=== PATIENT | male | born 1980 | race Caucasian/White ===

== ENCOUNTER 2020-01-06 06:28 | Outpatient (REF) | payer OTHER, SELFPAY | END 2020-01-06 06:29 | disposition home or self-care (01) | LOC: HO.LAB 06:28 | PROVIDERS: Visit Provider Family Medicine | DX: B19.20 Unspecified viral hepatitis C without hepatic coma (principal) | CPT/HCPCS: 36415; 87522 ==

== ENCOUNTER → 2020-03-29 11:55 | Outpatient (BNVA) | payer OTHER, SELFPAY | PROVIDERS: PCP Family Medicine; Visit Provider Internal Medicine Gastroenterology ==

== ENCOUNTER 2020-04-15 07:36 | Outpatient (REF) | payer OTHER, SELFPAY ==
--- NOTE | ~2020-04-15 | US_ITS ---
EXAMINATION: US COMPLETE ABDOMEN WITH LIVER ELASTOGRAPHY CLINICAL INFORMATION: Viral hepatitis C without hepatic coma. COMPARISON: 09/15/2015 abdominal ultrasound. TECHNIQUE: Real-time imaging of the abdominal viscera. Noninvasive ultrasound liver fibrosis assessment is performed using Philip Elast[employer] point quantification shear wave elastography (pSWE) with a C5-2 MHz transducer. Multiple elastography samples are obtained. FINDINGS: PANCREAS: Visualized portions unremarkable. ABDOMINAL AORTA: Visualized portions unremarkable. INFERIOR VENA CAVA: Visualized portions unremarkable. LIVER: Homogeneous echotexture without focal abnormality. The right lobe measures 15.3 cm in length. The left lobe measures 12.3 cm in length. Portal flow is hepatopedal. Shear wave liver elastography median stiffness is 1.42 m/s (reference: normal median stiffness is 1.3 m/s or less). IQR/median stiffness to assess sampling precision is 0.13 (reference: good quality data set is IQR/median stiffness of 0.15 or less). IQR: 0.18 GALLBLADDER: Minimal echogenic bile without other abnormality. COMMON BILE DUCT: 0.8 cm the common hepatic duct, 0.5 cm at the common bile duct. RIGHT KIDNEY: 10.9 cm. Unremarkable. LEFT KIDNEY: 11.3 cm. Unremarkable. SPLEEN: Normal. An 0.3 cm. Unremarkable. FREE FLUID: None. US/US abdomen comp w elastography IMPRESSION: 1. No significant intra-abdominal abnormality. 2. Liver elastography: 1.42 REFERENCE: Society of Radiologists in Ultrasound Liver Stiffness Thresholds (2020): LIVER STIFFNESS THRESHOLDS: *Liver Stiffness equal or less than 1.3 m/s: High probability of being normal. *Liver Stiffness less than 1.7 m/s: In the absence of other known clinical signs, rules out compensated advanced chronic liver disease. *Liver Stiffness 1.7-2.1 m/s: Suggestive of compensated advanced chronic liver disease but need further test for confirmation. *Liver Stiffness over 2.1 m/s: Rules in compensated advanced chronic liver disease. *Liver Stiffness over 2.4 m/s: Suggestive of clinically significant portal hypertension. QUALITY OF DATA SET: *IQR/Median value equal or less than 0.15 implies a quality data set. *IQR/Median value over 0.15 implies a poor quality data set. SIGNIFICANT CHANGE FROM PRIOR EXAM: Significant change if liver stiffness measurement is 10% or greater from prior exam. OTHER CONSIDERATIONS: The stage of liver fibrosis may be overestimated in the setting of acute hepatitis, liver inflammation, elevated liver function tests, hepatic vascular congestion, obstructive cholestasis, non-fasting state, and infiltrative diseases such as amyloidosis and lymphoma. In some patients with NAFLD, the liver stiffness thresholds for compensated advanced chronic liver disease may be lower. In causes other than viral hepatitis and NAFLD, liver stiffness thresholds are not well established.
== END 2020-04-15 07:37 | disposition home or self-care (01) ==
LOC: HO.US 07:36
PROVIDERS: PCP Family Medicine; Visit Provider Internal Medicine Gastroenterology
DX: B19.20 Unspecified viral hepatitis C without hepatic coma (principal)
CPT/HCPCS: 76705; 76981

== ENCOUNTER 2020-05-08 08:35 | Outpatient (REF) | payer OTHER, SELFPAY ==
[2020-05-08 09:09] LABS: MANUAL DIFF FLAG NO
[2020-05-08 09:16] LABS: Basophils Percent Auto 0.5 % (0-2); Eosinophils Absolute Auto 0.1 X10*3/uL (0.0-0.4); Eosinophils Percent Auto 1.9 % (0-4); Hematocrit 40.6 % (42-52); Hemoglobin 13.3 g/dl (14.0-18.0); Imm Gran Abs Auto 0.01 X10*3/uL (0.00-0.03); Imm Gran Pct Auto 0.2 % (0.0-0.4); Lymphocytes Absolute Auto 2.5 X10*3/uL (1.2-4.9); Lymphocytes Percent Auto 39.4 % (20-40); Mean Corpuscular HGB Conc 32.8 g/dl (31.0-36.0); Mean Corpuscular Volume 88.6 fL (80-98); Mean Platelet Volume 9.7 fL (9.4-12.4); Monocytes Absolute Auto 0.4 X10*3/uL (0.1-1.2); Monocytes Percent Auto 6.5 % (2-11); Neutrophils Absolute Auto 3.3 X10*3/uL (2.0-8.3); Neutrophils Percent Auto 51.5 % (45-73); Platelet Count 255 X10*3/uL (160-400); Red Blood Count 4.58 X10*6/uL (4.60-5.80); Red Cell Distribution Width 12.2 % (11.0-16.0); White Blood Count 6.3 X10*3/uL (4.8-10.8)
[2020-05-08 09:20] LABS: INTERNATIONAL NORM RATIO 1.1 (0.9-1.1); Prothrombin Time 12.6 SEC (10.8-13.0)
[2020-05-08 09:37] LABS: Alanine Aminotransferase 78 U/L (0-40); Albumin Level 4.4 g/dL (3.5-5.0); Alkaline Phosphatase 68 U/L (39-117); Anion Gap 9 (12-20); Aspartate Amino Transferase 38 U/L (5-37); Bilirubin Total 0.8 mg/dL (0.0-1.0); Blood Urea Nitrogen 22 mg/dL (9-16); Calcium 9.5 mg/dL (8.4-10.2); Carbon Dioxide 30 mmol/L (22-29); Chloride 104 mmol/L (96-108); Estimated Glomerular Filt Rate > 60; Glucose Random 121 mg/dL (60-115); Potassium 4.4 mmol/L (3.3-5.1); Sodium 139 mmol/L (135-145); Total Protein 7.2 g/dL (6.5-8.0)
[2020-05-12 08:01] LABS: HBS Num1 142.78 mIU/mL (0-7.99); HBc Num1 0.11 S/CO (0.00-0.79); Hepatitis A Antibody IgM 0.18 Index (0-0.79); Hepatitis B Core Antibody Nonreactive (Nonreactive); ~Hepatitis A Antibody IgM Nonreactive (Nonreactive); ~Hepatitis B Surface Antibody REACTIVE (Nonreactive)
[2020-05-12 09:28] LABS: HBsAGNum1 0.17 S/CO (0.00-0.99); Hepatitis B Surface Antigen Negative (Negative); ~HepC Num1 17.84 S/CO (0.00-0.79); ~Hepatitis C Antibody Reactive (Nonreactive)
[2020-05-15 11:02] LABS: FIB-ALT 67 U/L (9-46); FIB-Alpha-2-Macroglobulin 145 mg/dL (106-279); FIB-Apolipoprotein A1 139 mg/dL (94-176); FIB-GGT 23 U/L (3-90); FIB-Haptoglobin 102 mg/dL (43-212); FIB-Total Bilirubin 0.8 mg/dL (0.2-1.2); Liver Fibrosis Score 0.15; Liver Fibrosis Stage F0; Nec Inflam Act Grade A1; Nec Inflam Act Score 0.35
== END 2020-05-08 08:36 | disposition home or self-care (01) ==
LOC: HO.LAB 08:35
PROVIDERS: PCP Family Medicine; Visit Provider Internal Medicine Gastroenterology
DX: B19.20 Unspecified viral hepatitis C without hepatic coma (principal)
CPT/HCPCS: 36415; 80053; 81596; 85025; 85610; 86704; 86706; 86709; 86803; 87340

== ENCOUNTER 2020-06-08 07:16 | Outpatient (REF) | payer OTHER, SELFPAY ==
[2020-06-10 13:56] LABS: HCV RNA PCR Qn 202000 IU/mL (NOT DETECTED); HCV RNA PCR Qn 5.31 Log IU/mL (NOT DETECTED)
[2020-06-16 17:47] LABS: HCV Genotype LiPA 1a
== END 2020-06-08 07:17 | disposition home or self-care (01) ==
LOC: HO.LAB 07:16
PROVIDERS: PCP Family Medicine; Visit Provider Internal Medicine Gastroenterology
DX: B19.20 Unspecified viral hepatitis C without hepatic coma (principal)
CPT/HCPCS: 36415; 87522; 87902

== ENCOUNTER → 2020-07-09 10:38 | Outpatient (BNVA) | payer OTHER, SELFPAY | PROVIDERS: PCP Family Medicine; Visit Provider Internal Medicine Gastroenterology | DX: B19.20 Unspecified viral hepatitis C without hepatic coma (principal) ==

== ENCOUNTER 2020-08-10 07:20 | Outpatient (REF) | payer OTHER, SELFPAY ==
[2020-08-10 07:52] LABS: MANUAL DIFF FLAG NO
[2020-08-10 07:54] LABS: Basophils Percent Auto 0.4 % (0-2); Eosinophils Absolute Auto 0.1 X10*3/uL (0.0-0.4); Eosinophils Percent Auto 1.6 % (0-4); Hematocrit 39.5 % (42-52); Hemoglobin 13.3 g/dl (14.0-18.0); Imm Gran Abs Auto 0.02 X10*3/uL (0.00-0.03); Imm Gran Pct Auto 0.3 % (0.0-0.4); Lymphocytes Absolute Auto 3.2 X10*3/uL (1.2-4.9); Lymphocytes Percent Auto 42.8 % (20-40); Mean Corpuscular HGB Conc 33.7 g/dl (31.0-36.0); Mean Corpuscular Hemoglobin 29.4 pg (27.0-33.0); Mean Corpuscular Volume 87.2 fL (80-98); Mean Platelet Volume 9.8 fL (9.4-12.4); Monocytes Absolute Auto 0.6 X10*3/uL (0.1-1.2); Monocytes Percent Auto 7.4 % (2-11); Neutrophils Absolute Auto 3.5 X10*3/uL (2.0-8.3); Neutrophils Percent Auto 47.5 % (45-73); Platelet Count 237 X10*3/uL (160-400); Red Blood Count 4.53 X10*6/uL (4.60-5.80); Red Cell Distribution Width 12.1 % (11.0-16.0); White Blood Count 7.4 X10*3/uL (4.8-10.8)
[2020-08-10 08:23] LABS: Alanine Aminotransferase 16 U/L (0-40); Albumin Level 4.4 g/dL (3.5-5.0); Alkaline Phosphatase 64 U/L (39-117); Anion Gap 11 (12-20); Aspartate Amino Transferase 21 U/L (5-37); Bilirubin Total 0.6 mg/dL (0.0-1.0); Blood Urea Nitrogen 25 mg/dL (9-16); Calcium 9.8 mg/dL (8.4-10.2); Carbon Dioxide 28 mmol/L (22-29); Chloride 106 mmol/L (96-108); Estimated Glomerular Filt Rate > 60; Glucose Random 99 mg/dL (60-115); Potassium 4.4 mmol/L (3.3-5.1); Sodium 141 mmol/L (135-145); Total Protein 7.1 g/dL (6.5-8.0)
[2020-08-11 20:27] LABS: HCV Log PCR <1.18 NOT DETECTED Log IU/mL (NOT DETECTED); HepC Viral Load <15 NOT DETECTED IU/mL (NOT DETECTED)
== END 2020-08-10 07:21 | disposition home or self-care (01) ==
LOC: HO.LAB 07:20
PROVIDERS: PCP Family Medicine; Visit Provider Internal Medicine Gastroenterology
DX: B19.20 Unspecified viral hepatitis C without hepatic coma (principal)
CPT/HCPCS: 36415; 80053; 85025; 87522

== ENCOUNTER → 2020-08-13 10:49 | Outpatient (BNVA) | payer OTHER, SELFPAY | PROVIDERS: PCP Family Medicine; Visit Provider Internal Medicine Gastroenterology ==

== ENCOUNTER 2020-09-17 12:22 | Outpatient (REF) | payer OTHER, SELFPAY ==
[2020-09-17 13:15] LABS: MANUAL DIFF FLAG NO
[2020-09-17 13:19] LABS: Basophils Percent Auto 0.4 % (0-2); Eosinophils Absolute Auto 0.1 X10*3/uL (0.0-0.4); Hematocrit 41.1 % (42-52); Hemoglobin 13.6 g/dl (14.0-18.0); Imm Gran Abs Auto 0.02 X10*3/uL (0.00-0.03); Imm Gran Pct Auto 0.3 % (0.0-0.4); Lymphocytes Absolute Auto 2.3 X10*3/uL (1.2-4.9); Lymphocytes Percent Auto 29.7 % (20-40); Mean Corpuscular HGB Conc 33.1 g/dl (31.0-36.0); Mean Corpuscular Hemoglobin 28.9 pg (27.0-33.0); Mean Corpuscular Volume 87.4 fL (80-98); Monocytes Absolute Auto 0.4 X10*3/uL (0.1-1.2); Monocytes Percent Auto 5.7 % (2-11); Neutrophils Absolute Auto 4.9 X10*3/uL (2.0-8.3); Neutrophils Percent Auto 62.9 % (45-73); Platelet Count 280 X10*3/uL (160-400); Red Cell Distribution Width 12.5 % (11.0-16.0); White Blood Count 7.7 X10*3/uL (4.8-10.8)
[2020-09-17 13:54] LABS: Alanine Aminotransferase 12 U/L (0-40); Albumin Level 4.6 g/dL (3.5-5.0); Alkaline Phosphatase 77 U/L (39-117); Anion Gap 13 (12-20); Aspartate Amino Transferase 21 U/L (5-37); Bilirubin Total 0.4 mg/dL (0.0-1.0); Blood Urea Nitrogen 17 mg/dL (9-16); Carbon Dioxide 27 mmol/L (22-29); Chloride 104 mmol/L (96-108); Estimated Glomerular Filt Rate > 60; Glucose Random 103 mg/dL (60-115); Potassium 4.2 mmol/L (3.3-5.1); Sodium 140 mmol/L (135-145); Total Protein 7.5 g/dL (6.5-8.0)
[2020-09-17 14:00] LABS: Calcium 10.3 mg/dL (8.4-10.2)
[2020-09-22 12:42] LABS: HCV Log PCR <1.18 NOT DETECTED Log IU/mL (NOT DETECTED); HepC Viral Load <15 NOT DETECTED IU/mL (NOT DETECTED)
== END 2020-09-17 12:23 | disposition home or self-care (01) ==
LOC: HO.LAB 12:22
PROVIDERS: Family Medicine; Visit Provider Internal Medicine Gastroenterology
DX: Z00.00 Encounter for general adult medical examination without abnormal findings (principal); B19.20 Unspecified viral hepatitis C without hepatic coma
CPT/HCPCS: 36415; 80053; 85025; 87522

== ENCOUNTER 2021-02-05 09:52 | Outpatient (REF) | payer OTHER, SELFPAY ==
[2021-02-05 10:11] LABS: MANUAL DIFF FLAG NO
[2021-02-05 11:27] LABS: Basophils Percent Auto 0.3 % (0-2); Eosinophils Absolute Auto 0.2 X10*3/uL (0.0-0.4); Eosinophils Percent Auto 2.7 % (0-4); Hematocrit 40.3 % (42.0-52.0); Hemoglobin 13.3 g/dl (14.0-18.0); Imm Gran Abs Auto 0.03 X10*3/uL (0.00-0.03); Imm Gran Pct Auto 0.3 % (0.0-0.4); Lymphocytes Absolute Auto 2.1 X10*3/uL (1.2-4.9); Lymphocytes Percent Auto 23.3 % (20-40); Mean Corpuscular Hemoglobin 29.6 pg (27.0-33.0); Mean Corpuscular Volume 89.8 fL (80.0-98.0); Mean Platelet Volume 9.4 fL (9.4-12.4); Monocytes Absolute Auto 0.5 X10*3/uL (0.1-1.2); Monocytes Percent Auto 5.7 % (2-11); Neutrophils Absolute Auto 6.1 x10*3/uL (2.0-8.3); Neutrophils Percent Auto 67.7 % (45-73); Platelet Count 288 X10*3/uL (160-400); Red Blood Count 4.49 X10*6/uL (4.60-5.80); Red Cell Distribution Width 12.2 % (11.0-16.0)
[2021-02-05 12:12] LABS: Alanine Aminotransferase 13 U/L (0-40); Albumin Level 4.2 g/dL (3.5-5.0); Alkaline Phosphatase 84 U/L (39-117); Anion Gap 13 (12-20); Aspartate Amino Transferase 19 U/L (5-37); Bilirubin Total 0.4 mg/dL (0.0-1.0); Blood Urea Nitrogen 15 mg/dL (9-16); Calcium 9.9 mg/dL (8.4-10.2); Carbon Dioxide 28 mmol/L (22-29); Chloride 105 mmol/L (96-108); Cholesterol 171 mg/dL; Estimated Glomerular Filt Rate > 60; Glucose Random 89 mg/dL (60-115); HDL Cholesterol 43 mg/dL; LDL Cholesterol Calculated 105 mg/dl; Potassium 4.3 mmol/L (3.3-5.1); Sodium 142 mmol/L (135-145); Triglycerides 116 mg/dL
[2021-02-05 12:18] LABS: TSH reflex Free T4 1.45 uIU/mL (0.32-4.0)
[2021-02-10 21:02] LABS: HCV Log PCR <1.18 NOT DETECTED Log IU/mL (NOT DETECTED); HepC Viral Load <15 NOT DETECTED IU/mL (NOT DETECTED)
== END 2021-02-05 09:53 | disposition home or self-care (01) ==
LOC: HO.LAB 09:52
PROVIDERS: PCP Family Medicine; Visit Provider Internal Medicine Gastroenterology
DX: Z00.00 Encounter for general adult medical examination without abnormal findings (principal); B19.20 Unspecified viral hepatitis C without hepatic coma
CPT/HCPCS: 36415; 80053; 80061; 84443; 85025; 87522

== ENCOUNTER → 2021-02-08 11:12 | Outpatient (BNVA) | payer OTHER, SELFPAY | PROVIDERS: PCP Family Medicine; Visit Provider Internal Medicine Gastroenterology ==

== ENCOUNTER 2021-04-02 09:41 | Outpatient (REF) | payer OTHER, SELFPAY ==
[2021-04-02 10:11] LABS: MANUAL DIFF FLAG NO
[2021-04-02 11:58] LABS: Basophils Absolute Auto 0.1 X10*3/uL (0.0-0.2); Basophils Percent Auto 0.8 % (0-2); Eosinophils Absolute Auto 0.3 X10*3/uL (0.0-0.4); Eosinophils Percent Auto 3.3 % (0-4); Hematocrit 42.3 % (42.0-52.0); Hemoglobin 13.8 g/dl (14.0-18.0); Imm Gran Abs Auto 0.02 X10*3/uL (0.00-0.03); Imm Gran Pct Auto 0.3 % (0.0-0.4); Lymphocytes Absolute Auto 2.6 X10*3/uL (1.2-4.9); Lymphocytes Percent Auto 32.7 % (20-40); Mean Corpuscular HGB Conc 32.6 g/dl (31.0-36.0); Mean Corpuscular Hemoglobin 29.1 pg (27.0-33.0); Mean Corpuscular Volume 89.2 fL (80.0-98.0); Mean Platelet Volume 9.7 fL (9.4-12.4); Monocytes Absolute Auto 0.4 X10*3/uL (0.1-1.2); Monocytes Percent Auto 5.6 % (2-11); Neutrophils Absolute Auto 4.5 x10*3/uL (2.0-8.3); Neutrophils Percent Auto 57.3 % (45-73); Platelet Count 285 X10*3/uL (160-400); Red Blood Count 4.74 X10*6/uL (4.60-5.80); Red Cell Distribution Width 12.7 % (11.0-16.0); White Blood Count 7.9 X10*3/uL (4.8-10.8)
[2021-04-02 12:16] LABS: Alanine Aminotransferase 11 U/L (0-40); Albumin Level 4.3 g/dL (3.5-5.0); Alkaline Phosphatase 75 U/L (39-117); Anion Gap 11 (12-20); Aspartate Amino Transferase 18 U/L (5-37); Bilirubin Total 0.4 mg/dL (0.0-1.0); Blood Urea Nitrogen 12 mg/dL (9-16); Calcium 10.1 mg/dL (8.4-10.2); Carbon Dioxide 32 mmol/L (22-29); Chloride 103 mmol/L (96-108); Estimated Glomerular Filt Rate > 60; Glucose Fasting 88 mg/dL (60-99); Potassium 4.7 mmol/L (3.3-5.1); Sodium 141 mmol/L (135-145); Total Protein 7.1 g/dL (6.5-8.0)
[2021-04-05 19:21] LABS: HCV Log PCR <1.18 log IU/mL; HepC Viral Load <15 IU/mL
== END 2021-04-02 09:42 | disposition home or self-care (01) ==
LOC: HO.LAB 09:41
PROVIDERS: Internal Medicine Gastroenterology; PCP Family Medicine; Visit Provider Family Medicine
DX: Z00.00 Encounter for general adult medical examination without abnormal findings (principal); B19.20 Unspecified viral hepatitis C without hepatic coma
CPT/HCPCS: 36415; 80053; 85025; 87522

== ENCOUNTER 2021-04-30 09:49 | Outpatient (REF) | payer OTHER, SELFPAY ==
[2021-04-30 10:02] LABS: MANUAL DIFF FLAG NO
[2021-04-30 10:07] LABS: Basophils Absolute Auto 0.1 X10*3/uL (0.0-0.2); Basophils Percent Auto 0.4 % (0-2); Eosinophils Absolute Auto 0.2 X10*3/uL (0.0-0.4); Eosinophils Percent Auto 1.5 % (0-4); Hematocrit 44.3 % (42.0-52.0); Hemoglobin 14.2 g/dl (14.0-18.0); Imm Gran Abs Auto 0.03 X10*3/uL (0.00-0.03); Imm Gran Pct Auto 0.3 % (0.0-0.4); Lymphocytes Absolute Auto 2.4 X10*3/uL (1.2-4.9); Lymphocytes Percent Auto 20.6 % (20-40); Mean Corpuscular HGB Conc 32.1 g/dl (31.0-36.0); Mean Corpuscular Hemoglobin 29.1 pg (27.0-33.0); Mean Corpuscular Volume 90.8 fL (80.0-98.0); Mean Platelet Volume 9.6 fL (9.4-12.4); Monocytes Absolute Auto 0.6 X10*3/uL (0.1-1.2); Monocytes Percent Auto 5.1 % (2-11); Neutrophils Absolute Auto 8.4 x10*3/uL (2.0-8.3); Neutrophils Percent Auto 72.1 % (45-73); Platelet Count 273 X10*3/uL (160-400); Red Blood Count 4.88 X10*6/uL (4.60-5.80); White Blood Count 11.7 X10*3/uL (4.8-10.8)
[2021-04-30 10:40] LABS: Alanine Aminotransferase 10 U/L (0-40); Albumin Level 4.4 g/dL (3.5-5.0); Alkaline Phosphatase 74 U/L (39-117); Anion Gap 13 (12-20); Aspartate Amino Transferase 18 U/L (5-37); Bilirubin Total 0.4 mg/dL (0.0-1.0); Blood Urea Nitrogen 15 mg/dL (9-16); Calcium 9.9 mg/dL (8.4-10.2); Carbon Dioxide 26 mmol/L (22-29); Chloride 105 mmol/L (96-108); Estimated Glomerular Filt Rate > 60; Glucose Random 116 mg/dL (60-115); Sodium 140 mmol/L (135-145); Total Protein 7.3 g/dL (6.5-8.0)
[2021-04-30 11:01] LABS: Prostate Specific Antigen Scr 0.37 ng/mL (<0.05-4.0)
== END 2021-04-30 09:50 | disposition home or self-care (01) ==
LOC: HO.LAB 09:49
PROVIDERS: PCP Family Medicine; Visit Provider Family Medicine
DX: Z12.5 Encounter for screening for malignant neoplasm of prostate (principal); D64.9 Anemia, unspecified; B19.20 Unspecified viral hepatitis C without hepatic coma
CPT/HCPCS: 36415; 80053; 84153; 85025

== ENCOUNTER → 2021-06-01 13:22 | Outpatient (BNVA) | payer OTHER, SELFPAY | PROVIDERS: Visit Provider Internal Medicine | DX: Z51.81 Encounter for therapeutic drug level monitoring (principal); F11.20 Opioid dependence, uncomplicated | CPT/HCPCS: 80305 ==

== ENCOUNTER 2022-06-22 15:45 | Outpatient (REF) | payer OTHER, SELFPAY ==
[2022-06-22 16:02] LABS: MANUAL DIFF FLAG NO
[2022-06-22 17:27] LABS: Basophils Absolute Auto 0.1 X10*3/uL (0.0-0.2); Basophils Percent Auto 0.4 % (0-2); Eosinophils Percent Auto 0.3 % (0-4); Hematocrit 39.6 % (42.0-52.0); Hemoglobin 13.2 g/dl (14.0-18.0); Imm Gran Abs Auto 0.07 X10*3/uL (0.00-0.03); Imm Gran Pct Auto 0.5 % (0.0-0.4); Lymphocytes Absolute Auto 1.9 X10*3/uL (1.2-4.9); Mean Corpuscular HGB Conc 33.3 g/dl (31.0-36.0); Monocytes Absolute Auto 0.6 X10*3/uL (0.1-1.2); Monocytes Percent Auto 4.1 % (2-11); Neutrophils Absolute Auto 11.2 x10*3/uL (2.0-8.3); Neutrophils Percent Auto 80.7 % (45-73); Platelet Count 279 X10*3/uL (160-400); Red Blood Count 4.55 X10*6/uL (4.60-5.80); Red Cell Distribution Width 12.2 % (11.0-16.0); White Blood Count 13.9 X10*3/uL (4.8-10.8)
[2022-06-22 17:29] LABS: Appearance Urine Clear; Color Urine Yellow; Glucose Urine UA Negative (Negative); Leukocyte Esterase Urine Negative (Negative); Nitrite Urine Negative (Negative); Specific Gravity - Urine 1.015 (1.005-1.025); Urine Blood Negative (Negative); Urine Ketones Trace mg/dL (Negative); Urine Protein Trace mg/dL (Neg-Trace)
[2022-06-22 17:52] LABS: Creatinine Urine 157.91 mg/dL; Microalbum/Creatinine Ratio Ur 13.9 ug/mg cr
[2022-06-22 18:12] LABS: Alanine Aminotransferase 11 U/L (0-40); Albumin Level 4.6 g/dL (3.5-5.0); Alkaline Phosphatase 76 U/L (39-117); Anion Gap 16 (12-20); Aspartate Amino Transferase 22 U/L (5-37); Bilirubin Total 0.7 mg/dL (0.0-1.0); Blood Urea Nitrogen 12 mg/dL (9-16); Calcium 9.9 mg/dL (8.4-10.2); Carbon Dioxide 24 mmol/L (22-29); Chloride 103 mmol/L (96-108); Cholesterol 181 mg/dL; Estimated Glomerular Filt Rate > 60; Glucose Fasting 86 mg/dL (60-99); HDL Cholesterol 53 mg/dL; LDL Cholesterol Calculated 110 mg/dl; Potassium 4.1 mmol/L (3.3-5.1); Sodium 139 mmol/L (135-145); Total Protein 7.1 g/dL (6.5-8.0); Triglycerides 94 mg/dL
[2022-06-22 18:23] LABS: Folate 7.1 ng/mL (> or = 4.0); Prostate Specific Antigen Scr 0.45 ng/mL (<0.05-4.0); Vitamin B12 532 pg/mL (200-900)
[2022-06-23 08:52] LABS: HIV AB/AG Nonreactive (Nonreactive); HIV Num 1 0.07 S/CO (0.00-0.99)
== END 2022-06-22 15:46 | disposition home or self-care (01) ==
LOC: HO.LAB 15:45
PROVIDERS: PCP Family Medicine; Visit Provider Family Medicine
DX: Z00.00 Encounter for general adult medical examination without abnormal findings (principal); Z12.5 Encounter for screening for malignant neoplasm of prostate; Z11.3 Encounter for screening for infections with a predominantly sexual mode of transmission; E55.9 Vitamin D deficiency, unspecified; I10 Essential (primary) hypertension; E53.8 Deficiency of other specified B group vitamins
CPT/HCPCS: 36415; 80053; 80061; 81003; 82043; 82306; 82607; 82746; 84153; 84443; 85025; 87389

== ENCOUNTER 2022-07-29 09:01 | Outpatient (REF) | payer OTHER, SELFPAY ==
[2022-07-29 09:24] LABS: MANUAL DIFF FLAG NO
[2022-07-29 09:34] LABS: Basophils Absolute Auto 0.1 X10*3/uL (0.0-0.2); Basophils Percent Auto 0.6 % (0-2); Eosinophils Absolute Auto 0.3 X10*3/uL (0.0-0.4); Eosinophils Percent Auto 3.2 % (0-4); Hematocrit 40.3 % (42.0-52.0); Hemoglobin 13.2 g/dl (14.0-18.0); Imm Gran Abs Auto 0.03 X10*3/uL (0.00-0.03); Imm Gran Pct Auto 0.4 % (0.0-0.4); Lymphocytes Absolute Auto 1.4 X10*3/uL (1.2-4.9); Lymphocytes Percent Auto 18.4 % (20-40); Mean Corpuscular HGB Conc 32.8 g/dl (31.0-36.0); Mean Corpuscular Hemoglobin 28.6 pg (27.0-33.0); Mean Corpuscular Volume 87.4 fL (80.0-98.0); Mean Platelet Volume 9.2 fL (9.4-12.4); Monocytes Absolute Auto 0.6 X10*3/uL (0.1-1.2); Monocytes Percent Auto 8.2 % (2-11); Neutrophils Absolute Auto 5.4 x10*3/uL (2.0-8.3); Neutrophils Percent Auto 69.2 % (45-73); Platelet Count 247 X10*3/uL (160-400); Red Blood Count 4.61 X10*6/uL (4.60-5.80); Red Cell Distribution Width 12.8 % (11.0-16.0); White Blood Count 7.8 X10*3/uL (4.8-10.8)
[2022-07-29 10:17] LABS: Erythrocyte Sedimentation Rate 6 MM/HR (0-15)
== END 2022-07-29 09:02 | disposition home or self-care (01) ==
LOC: HO.LAB 09:01
PROVIDERS: PCP Family Medicine; Visit Provider Family Medicine
DX: Z00.00 Encounter for general adult medical examination without abnormal findings (principal); D64.9 Anemia, unspecified
CPT/HCPCS: 36415; 85025; 85652; 86141

== ENCOUNTER 2022-12-05 16:24 | Outpatient (AMB) | payer OTHER, SELFPAY ==
--- NOTE | 2022-12-05 16:27 | MHC.PC.OV ---
Vital Signs 12/05/22 16:28 Height 6 ft Weight 171 lb 4 oz BMI 23.2 BP 122/80 Blood Pressure Location Lt brachial Position Sitting Pulse 81 Pulse Source Pulse Oximeter Temp 98 F Temp Source Oral Intake Visit Reasons: f/u anxiety/depression Intake Note: Patient is here for follow up on anxiety and depression. Allergies No Known Allergies Allergy (Verified 12/05/22 16:30) Tobacco use date assessed: 12/05/22 Dental Screening Dental Screen Date: 12/05/22 HPI f/u anxiety/depression HPI Details 42 y/o male presents to f/u anxiety/depression. Pt reports anxiety/depression improved. He is on fluoxetine 20mg daily and trazodone. PFSH Surgical History H/O hand surgery History of hernia surgery Family History Maternal Grandfather Cancer Father No problems noted. Mother No problems noted. Maternal Grandfather Lung cancer Maternal Grandmother CVD (cardiovascular disease) Paternal Grandmother No problems noted. Paternal Grandfather No problems noted. Brother No problems noted. Sister No problems noted. Sister No problems noted. Sister No problems noted. Social History Household Members: Family Housing: House Alcohol intake: current Alcohol intake frequency: does not drink Patient Tobacco Use Status: Current everyday Tobacco user Cigarettes Per Day: 14 e-Cigarette/Vaping Use: Never Used Second Hand Smoke Exposure: No Substance Use Type: Marijuana service: No Current occupational status: employed Current occupational exposures/hazards: No Cognitive needs: No Hearing needs: No Vision needs: No Questionnaire PHQ-9 Over the last 2 weeks, how often have you been bothered by any of the following problems? 1. Little interest or pleasure in doing things: not at all 2. Feeling down, depressed, or hopeless: several days 3. Trouble falling or staying asleep, or sleeping too much: several days 4. Feeling tired or having little energy: several days 5. Poor appetite or overeating: several days 6. Feeling bad about yourself - or that you are a failure or have let yourself or your family down: not at all 7. Trouble concentrating on things, such as reading the newspaper or watching television: several days 8. Moving or speaking so slowly that other people could have noticed. Or the opposite - being so fidgety or restless that you have been moving around a lot more than usual: not at all 9. Thoughts that you would be better off or of hurting yourself in some way: not at all Total score: 5 Source: Developed by Drs. Fidencio Ghotra, Alyse Christopher, Jordan Farmer and colleagues, with an educational alecia from [employer]. Thrive Questionnaire Date Thrive assessed: 03/30/22 MALINDA-7 AMB Questionnaire MALINDA-7 Date MALINDA - 7 assessed: 12/05/22 Feeling nervous, anxious, or on edge: 1 = Several days Not being able to stop or control worryin = Not at all Worrying too much about different things: 0 = Not at all Trouble relaxin = Not at all Being so restless that it is hard to sit still: 0 = Not at all Becoming easily annoyed or irritable: 1 = Several days Feeling afraid as if something awful might happen: 0 = Not at all Total MALINDA-7 score (0-4 normal; 5-9 mild; 10-14 moderate; 15-21 severe): 2 Source: Developed by Drs. Fidencio Ghotra, Alyse Christopher, Jordan Farmer and colleagues, with an educational alecia from [employer]. Review of Systems Const Denies chills, Denies fatigue, Denies fever(s), Denies headache(s) and Denies weakness ENT Denies dizziness and Denies headache(s) Card Denies chest pain, Denies lightheadedness, Denies dyspnea and Denies other (Palpitations) Resp Denies cough, Denies dyspnea, Denies wheezing and Denies other ( shortness of breath) Musc Denies numbness and Denies tingling Neuro Denies dizziness, Denies headache(s), Denies numbness, Denies tingling, Denies paresthesias and Denies weakness Psych Denies anxiety and Denies depression Endo Denies fatigue Aller/Immun Denies wheezing Physical exam (Primary Care) Vital Signs: Last Vital Signs Temp 98 F 12/05/22 16:28 Pulse 81 12/05/22 16:28 BP 122/80 12/05/22 16:28 BMI result Body Mass Index 23.2 Tobacco/Smoking Status: Tobacco use Status Tobacco use date assessed 12/05/22 12/05/22 16:33 Patient Tobacco Use Status Current everyday Tobacco 12/05/22 16:33 e-Cigarette/Vaping Use Never Used 12/05/22 16:33 PHQ-9: PHQ-9 Score PHQ-9: Total score 5 12/05/22 17:00 Thrive Assessment: Date of Thrive Assessment Date Thrive assessed 03/30/22 12/05/22 16:33 Const General: no acute distress and well developed Nutritional Appearance: well nourished Orientation/consciousness: patient oriented x3 HENMT Head: Yes normocephalic and Yes atraumatic Eyes General: appearance normal, both eyes and all related structures Pupils: Equal, round and reactive pupils present EOM: EOMs intact bilaterally Resp Effort & Inspection: normal respiratory effort Auscultation: clear to auscultation bilaterally Cardio Rate: regular rate Rhythm: regular rhythm Heart sounds: S1 normal heart sound present, S2 normal heart sound present, no gallops, no murmurs and no rubs Neuro General: patient oriented x3 and gait normal Cranial nerves: Yes Equal, round and reactive pupils present Psych Affect: normal affect Assessment and Plan Assessment & Plan (1) Anxiety and depression: Code(s): F41.9 - Anxiety disorder, unspecified; F32.A - Depression, unspecified Plan: Patient?is?stable?on?fluoxetine?and?trazodone. Continue?current?medication?regimen Encouraged?exercise (2) Opiate abuse, episodic: Code(s): F11.10 - Opioid abuse, uncomplicated Plan: Patient?remains?abstinent?opioids Encouraged?further?abstinence Encouraged?exercise Avoid?social?interactions?with?people?who?may?encouraged?opioid?abuse. Continue?methadone (3) Family history of congenital heart defect: Code(s): Z82.79 - Family history of other congenital malformations, deformations and chromosomal abnormalities Plan: Patient?notes?family?history?of?congenital?bicuspid?aortic?valve Checking?echocardiogram Orders: Orders CA echo transthoracic complete Today Z82.79 - Family history of other congenital malformations, deformations and chromosomal abnormalities Coding Level of Care Code Est Pt Level 4 (75001) Diagnoses Anxiety and depression F41.9; F32.A Opiate abuse, episodic F11.10 Family history of congenital heart defect Z82.79
[2022-12-05 16:28] VITALS: BP 122/80; PULSE 81; TEMP 36.6; BMI 23.2
== END 2022-12-05 17:08 | disposition home or self-care (01) ==
PROVIDERS: PCP Family Medicine; Visit Provider Family Medicine
DX: F41.9 Anxiety disorder, unspecified (principal); F32.A Depression, unspecified; F11.10 Opioid abuse, uncomplicated; Z82.79 Family history of other congenital malformations, deformations and chromosomal abnormalities
CPT/HCPCS: 99214

== ENCOUNTER → 2023-06-06 15:40 | Outpatient (AMB) | payer OTHER, SELFPAY ==
[2023-06-06 15:45] VITALS: BP 126/72; PULSE 83; O2SAT 98; BMI 23.0
--- NOTE | 2023-06-06 15:45 | A.OFFPC_ITS ---
Vital Signs 06/06/23 15:45 Height 6 ft Weight 169 lb 8 oz BMI 23.0 BP 126/72 Blood Pressure Location Lt brachial Position Sitting Pulse 83 Pulse Source Pulse Oximeter Pulse Oximetry (%) 98 Oxygen Delivery Method Room Air Intake Visit Reasons: f/u anxiety/depression Intake Note: Patient is here to follow up on anxiety/depression. Allergies No Known Allergies Allergy (Verified 06/06/23 15:46) Medication List - Last Reconciled 06/06/23 by Luke Lew MD fluoxetine 20 mg PO DAILY methadone 110 mg PO DAILY trazodone 50 mg PO BEDTIME PRN 30 days Tobacco use date assessed: 06/06/23 Dental Screening Dental Screen Date: 06/06/23 Did you have a dental visit in the last 12 months?: Yes Did you have a dental problem in the last 6 months where you did not have access to dental care?: No Was dental information given to patient?: Patient has dentist HPI f/u anxiety/depression HPI Details 42 y/o male presents to f/u anxiety/depr ession. PHQ-9 1 and MALINDA-7 0 today. He is on fluoxetine 20mg daily. He states he feels comfortable with his medication regimen. He continues to see his therapist. [facility] Surgical History H/O hand surgery History of hernia surgery Family History Maternal Grandfather Cancer Father No problems noted. Mother No problems noted. Maternal Grandfather Lung cancer Maternal Grandmother CVD (cardiovascular disease) Paternal Grandmother No problems noted. Paternal Grandfather No problems noted. Brother No problems noted. Sister No problems noted. Sister No problems noted. Sister No problems noted. Social History Household Members: Family Housing: House Alcohol intake: current Alcohol intake frequency: does not drink Patient Tobacco Use Status: Current everyday Tobacco user Cigarettes Per Day: 2 Years Smoked: One pack lasts just under a month. e-Cigarette/Vaping Use: Never Used Second Hand Smoke Exposure: No Substance Use Type: Marijuana service: No Current occupational status: employed Current occupational exposures/hazards: No Cognitive needs: No Hearing needs: No Vision needs: No Questionnaire PHQ-9 Over the last 2 weeks, how often have you been bothered by any of the following problems? 1. Little interest or pleasure in doing things: not at all 2. Feeling down, depressed, or hopeless: not at all 3. Trouble falling or staying asleep, or sleeping too much: not at all 4. Feeling tired or having little energy: not at all 5. Poor appetite or overeating: several days 6. Feeling bad about yourself - or that you are a failure or have let yourself or your family down: not at all 7. Trouble concentrating on things, such as reading the newspaper or watching television: not at all 8. Moving or speaking so slowly that other people could have noticed. Or the op posite - being so fidgety or restless that you have been moving around a lot more than usual: not at all 9. Thoughts that you would be better off or of hurting yourself in some way: not at all Total score: 1 Depression Screening Interpretation: Negative Depression Screening Done: Yes 54100 - PHQ-9 Billing: Yes Source: Developed by Drs. Fidencio Ghotra, Alyse Christopher, Jordan Farmer and colleagues, with an educational alecia from [employer]. Thrive Questionnaire Date Thrive assessed: 03/30/22 MALINDA-7 AMB Questionnaire MALINDA-7 Date MALINDA - 7 assessed: 06/06/23 Feeling nervous, anxious, or on edge: 0 = Not at all Not being able to stop or control worryin = Not at all Worrying too much about different things: 0 = Not at all Trouble relaxin = Not at all Being so restless that it is hard to sit still: 0 = Not at all Becoming easily annoyed or irritable: 0 = Not at all Feeling afraid as if something awful might happen: 0 = Not at all Total MALINDA-7 score (0-4 normal; 5-9 mild; 10-14 moderate; 15-21 severe): 0 Source: Developed by Drs. Fidencio Ghotra, Alyse Christopher, Jordan Farmer and colleagues, with an educational alecia from [employer]. MALINDA-7 Assessment Billing MALINDA-7 Assessment Tool: MALINDA-7 Assessment 87413 Physical exam (Primary Care) Vital Signs: Last Vital Signs Pulse 83 06/06/23 15:45 BP 126/72 06/06/23 15:45 Pulse Ox 98 06/06/23 15:45 Oxygen Delivery Method Room Air 06/06/23 15:45 BMI result Body Mass Index 23.0 Tobacco/Smoking Status: Tobacco use Status Tobacco use date assessed 06/06/23 06/06/23 15:54 Patient Tobacco Use Status Current everyday Tobacco 06/06/23 15:54 e-Cigarette/Vaping Use Never Used 06/06/23 15:54 PHQ-9: PHQ-9 Score PHQ-9: Total score 1 06/06/23 15:56 Depression Screening Interpretation: Negative Thrive Assessment: Date of Thrive Assessment Date Thrive assessed 03/30/22 06/06/23 15:54 Assessment and Plan Assessment & Plan (1) Anxiety and depression: Code(s): F41.9 - Anxiety disorder, unspecified; F32.A - Depression, unspecified Plan: Anxiety?depression?appear?well?controlled?on?fluoxetine?and?trazodone Continue?medications?as?prescribed Patient?notes?that?he?had?been dabling with?heroin?every?few?weeks?and?he?has?le t?his?therapist?know?about?this?and?has?not?had?any?usage?in?the?last?month. Encouraged?ongoing?abstinence. Follow-up?with?therapist?as?recommended Orders: Orders Complete Blood Count Auto Diff Today Z00.00 - Encounter for general adult medical examination without abnormal findings Microalbumin, Random (w Creat) Today I10 - Essential (primary) hypertension Prostate Specific Antigen Scr Today Z12.5 - Encounter for screening for malig nant neoplasm of prostate Comprehensive [place]. Panel Fast Today Z00.00 - Encounter for general adult medical examination without abnormal findings Lipid Panel Today Z00.00 - Encounter for general adult medical examination without abnormal findings TSH reflex Free T4 Today Z00.00 - Encounter for general adult medical ex amination without abnormal findings UA and rflx microscopic Today Z00.00 - Encounter for general adult medical examination without abnormal findings Coding Level of Care Code Est Pt Level 3 (98531) Diagnoses Anxiety and depression F41.9; F32.A Additional Codes MALINDA-7 Assessment Billing - MALINDA-7 Assessment Tool: MALINDA-7 Assessment [id number] ([id number])
== END ==
PROVIDERS: PCP Family Medicine; Visit Provider Family Medicine
DX: F41.9 Anxiety disorder, unspecified (principal); F32.A Depression, unspecified
CPT/HCPCS: 99213

== ENCOUNTER 2024-01-16 10:13 | Outpatient (REF) | payer OTHER, SELFPAY ==
[2024-01-16 10:37] LABS: MANUAL DIFF FLAG NO
[2024-01-16 11:17] LABS: Basophils Absolute Auto 0.1 X10*3/uL (0.0-0.2); Eosinophils Absolute Auto 0.3 X10*3/uL (0.0-0.4); Eosinophils Percent Auto 3.8 % (0-4); Hematocrit 37.9 % (42.0-52.0); Hemoglobin 12.7 g/dl (14.0-18.0); Imm Gran Abs Auto 0.01 X10*3/uL (0.00-0.03); Imm Gran Pct Auto 0.1 % (0.0-0.4); Lymphocytes Absolute Auto 2.7 X10*3/uL (1.2-4.9); Lymphocytes Percent Auto 37.7 % (20-40); Mean Corpuscular HGB Conc 33.5 g/dl (31.0-36.0); Mean Corpuscular Volume 86.5 fL (80.0-98.0); Mean Platelet Volume 9.7 fL (9.4-12.4); Monocytes Absolute Auto 0.5 X10*3/uL (0.1-1.2); Monocytes Percent Auto 6.9 % (2-11); Neutrophils Absolute Auto 3.6 x10*3/uL (2.0-8.3); Neutrophils Percent Auto 50.5 % (45-73); Platelet Count 281 X10*3/uL (160-400); Red Blood Count 4.38 X10*6/uL (4.60-5.80); Red Cell Distribution Width 12.1 % (11.0-16.0); White Blood Count 7.1 X10*3/uL (4.8-10.8)
[2024-01-16 11:18] LABS: Appearance Urine Clear; Color Urine Dark Yellow; Glucose Urine UA Negative (Negative); Leukocyte Esterase Urine Trace (Negative); Nitrite Urine Negative (Negative); Specific Gravity - Urine 1.025 (1.005-1.025); UMIC TRIGGER UA YES; Urine Blood Negative (Negative); Urine Ketones Trace mg/dL (Negative); Urine Protein 30 (1+) mg/dL (Neg-Trace)
[2024-01-16 11:25] LABS: Bacteria Urine None Seen (None Seen); Hyaline Casts Urine 0-2 /LPF (0-2); RBC Urine 0-2 /HPF (0-2); Squamous Epithelial Cell Urine 0-2 /HPF (0-2); WBC Urine 0-5 /HPF (0-5)
[2024-01-16 12:18] LABS: Prostate Specific Antigen Scr 0.61 ng/mL (<0.05-4.0)
[2024-01-16 12:19] LABS: Creatinine Urine 524.38 mg/dL; Microalbum/Creatinine Ratio Ur 4.7 ug/mg cr (<30)
[2024-01-16 12:27] LABS: Alanine Aminotransferase 15 U/L (0-40); Albumin Level 4.2 g/dL (3.5-5.0); Alkaline Phosphatase 77 U/L (39-117); Anion Gap 10 (12-20); Aspartate Amino Transferase 26 U/L (5-37); Bilirubin Total 0.4 mg/dL (0.0-1.0); Blood Urea Nitrogen 14 mg/dL (9-16); Calcium 9.4 mg/dL (8.4-10.2); Carbon Dioxide 28 mmol/L (22-29); Chloride 106 mmol/L (96-108); Cholesterol 125 mg/dL (<200); Estimated Glomerular Filt Rate > 60; Glucose Fasting 101 mg/dL (60-99); HDL Cholesterol 45 mg/dL (>40); LDL Cholesterol Calculated 68 mg/dL (<100); Potassium 3.8 mmol/L (3.3-5.1); Sodium 140 mmol/L (135-145); TSH reflex Free T4 1.07 uIU/mL (0.32-4.0); Total Protein 6.7 g/dL (6.5-8.0); Triglycerides 60 mg/dL (<150)
== END 2024-01-16 10:14 | disposition home or self-care (01) ==
LOC: HO.LAB 10:13
PROVIDERS: PCP Family Medicine; Visit Provider Family Medicine
DX: Z00.00 Encounter for general adult medical examination without abnormal findings (principal); Z12.5 Encounter for screening for malignant neoplasm of prostate; I10 Essential (primary) hypertension
CPT/HCPCS: 36415; 80053; 80061; 81001; 82043; 82570; 84153; 84443; 85025

== ENCOUNTER 2024-01-17 10:50 | Outpatient (AMB) | payer OTHER, SELFPAY ==
--- NOTE | 2024-01-17 11:31 | A.OFFPC_ITS ---
Vital Signs 01/17/24 11:32 Height 6 ft Weight 156 lb 8 oz BMI 21.2 BP 120/78 Blood Pressure Location Lt brachial Position Sitting Respiration 16 Pulse 73 Pulse Source Pulse Oximeter Temp 98 F Temp Source Oral Pulse Oximetry (%) 96 Oxygen Delivery Method Room Air Intake Visit Reasons: F/u Labs and fmla paperwork Intake Note: fmla paper work for mental health and substance abuse Allergies No Known Allergies Allergy (Verified 01/17/24 11:32) Tobacco use date assessed: 06/06/23 Dental Screening Dental Screen Date: 06/06/23 HPI F/u Labs and fmla paperwork HPI Details 43 y/o male presents today to f/u labs, FMLA paperwork. Labs drawn 01/16/24. Reviewed labs with pt. Ongoing anemia. Elevated fasting glucose of 101. Triglycerides 60. TC 125. LDL 68. HDL 45. PSA 0.61. PFSH Surgical History H/O hand surgery History of hernia surgery Family History Maternal Grandfather Cancer Father No problems noted. Mother No problems noted. Maternal Grandfather Lung cancer Maternal Grandmother CVD (cardiovascular disease) Paternal Grandmother No problems noted. Paternal Grandfather No problems noted. Brother No problems noted. Sister No problems noted. Sister No problems noted. Sister No problems noted. Social History Household Members: Family Housing: House Alcohol intake: current Alcohol intake frequency: does not drink Patient Tobacco Use Status: Current everyday Tobacco user Cigarettes Per Day: 2 Years Smoked: One pack lasts just under a month. e-Cigarette/Vaping Use: Never Used Second Hand Smoke Exposure: No Substance Use Type: Marijuana service: No Current occupational status: employed Current occupational exposures/hazards: No Cognitive needs: No Hearing needs: No Vision needs: No Questionnaire PHQ-9 Over the last 2 weeks, how often have you been bothered by any of the following problems? 1. Little interest or pleasure in doing things: several days 2. Feeling down, depressed, or hopeless: several days 3. Trouble falling or staying asleep, or sleeping too much: several days 4. Feeling tired or having little energy: not at all 5. Poor appetite or overeating: more than half the days 6. Feeling bad about yourself - or that you are a failure or have let yourself or your family down: several days 7. Trouble concentrating on things, such as reading the newspaper or watching television: not at all 8. Moving or speaking so slowly that other people could have noticed. Or the opposite - being so fidgety or restless that you have been moving around a lot more than usual: not at all 9. Thoughts that you would be better off or of hurting yourself in some wa y: not at all Total score: 6 Source: Developed by Drs. Fidencio Ghotra, Jordan Prescott and colleagues, with an educational alecia from [employer]. Thrive Questionnaire Date Thrive assessed: 01/15/24 I am a: Patient What is your living situation today?: I have a steady place to live Within the past 12 months, did the food you bought not last and you didn't have the money to get more?: Never true Within the past 12 months, did you worry whether your food would run out before you got money to buy more?: Never true Do you have trouble paying for medicines?: No Do you have trouble getting transportation to medical appointments?: No Do you have trouble paying your heating and electricity bill?: No Do you have trouble taking care of your child, family member or friend?: No Do you have trouble with day-to-day activities such as bathing, preparing meals, shopping, managing finances, etc.?: No Are you currently unemployed and looking for a job?: No Are you interested in more education?: No Please select the resources that you would like help with: None Currently or been in a relationship where the following occur: No concerns reported THRIVE Score: 0 MALINDA-7 AMB Questionnaire MALINDA-7 Date MALINDA - 7 assessed: 06/06/23 Source: Developed by Drs. Fidencio Ghotra, Jordan Prescott and colleagues, with an educational alecia from [employer]. Physical exam (Primary Care) Vital Signs: Last Vital Signs Temp 98 F 01/17/24 11:32 Pulse 73 01/17/24 11:32 Resp 16 01/17/24 11:32 BP 120/78 01/17/24 11:32 Pulse Ox 96 01/17/24 11:32 Oxygen Delivery Method Room Air 01/17/24 11:32 BMI result Body Mass Index 21.2 Tobacco/Smoking Status: Tobacco use Status Tobacco use date assessed 06/06/23 01/17/24 11:35 Patient Tobacco Use Status Current everyday Tobacco 01/17/24 11:35 e-Cigarette/Vaping Use Never Used 01/17/24 11:35 PHQ-9: PHQ-9 Score PHQ-9: Total score 6 01/17/24 11:39 Thrive Assessment: Date of Thrive Assessment Date Thrive assessed 01/15/24 01/17/24 11:35 Currently or been in a relationship where the following occur: No concerns reported Coding Level of Care Code Est Pt Level 3 (19824) Diagnoses Substance use disorder F19.90 Anxiety and depression F41.9; F32.A Assessment & Plan Assessment & Plan (1) Substance use disorder: Code(s): F19.90 - Other psychoactive substance use, unspecified, uncomplicated Category: Medical Plan: Patient?had?admissions?for?substance?use?disorder?from?[id number][facility]and[facility]then[facility]11?9?or?01/06/2024?[facility] Now?has?therapist?and?attending?weekly?and?plans?to?also?attend?AA?meetings. Filling?out?FMLA?paperwork?from?12/29/2023?to?01/27/2024? and?he?plans?to?return?to?work?on?01/28/2024 Will?also?make?a?referral?to?the[facility] Will?follow- up?with?him?at?the?end?December?and?ensure?that?he?is?ready?go?back?to?work (2) Anxiety and depression: Code(s): F41.9 - Anxiety disorder, unspecified; F32.A - Depression, unspecified Category: Medical Plan: Currently?stable Follow-up?with?therapist Orders: Referrals Addiction Medicine Referral F19.90 - Other psychoactive substance use, unspecified, uncomplicated
[2024-01-17 11:32] VITALS: BP 120/78; PULSE 73; RESP 16; TEMP 36.6; O2SAT 96; BMI 21.2
== END 2024-01-17 12:23 | disposition home or self-care (01) ==
PROVIDERS: PCP Family Medicine; Visit Provider Family Medicine
DX: F19.90 Other psychoactive substance use, unspecified, uncomplicated (principal); F41.9 Anxiety disorder, unspecified; F32.A Depression, unspecified

== ENCOUNTER 2024-01-23 11:10 | Outpatient (AMB) | payer OTHER, SELFPAY ==
--- NOTE | 2024-01-23 11:36 | A.OFFPC_ITS ---
Vital Signs 01/23/24 11:38 Height 6 ft Weight 163 lb 6 oz BMI 22.2 BP 120/70 Blood Pressure Location Rt brachial Position Sitting Respiration 16 Pulse 81 Pulse Source Pulse Oximeter Temp 97.9 F Temp Source Oral Pulse Oximetry (%) 96 Oxygen Delivery Method Room Air Intake Visit Reasons: f/u FMLA Paperwork Intake Note: fmla paperwork follow up Allergies No Known Allergies Allergy (Verified 01/23/24 11:37) Tobacco use date assessed: 06/06/23 Dental Screening Dental Screen Date: 06/06/23 HPI f/u FMLA Paperwork 2 HPI Details 43 y/o male presents to f/u FMLA paperwo rk. Following up on anxiety/depression and substance use disorder. Pt on FMLA and plans to return to work 2nd. PFSH Surgical History H/O hand surgery History of hernia surgery Family History Maternal Grandfather Cancer Father No problems noted. Mother No problems noted. Maternal Grandfather Lung cancer Maternal Grandmother CVD (cardiovascular disease) Paternal Grandmother No problems noted. Paternal Grandfather No problems noted. Brother No problems noted. Sister No problems noted. Sister No problems noted. Sister No problems noted. Social History Household Members: Family Housing: House Alcohol intake: current Alcohol intake frequency: does not drink Patient Tobacco Use Status: Current everyday Tobacco user Cigarettes Per Day: 2 Years Smoked: One pack lasts just under a month. e-Cigarette/Vaping Use: Never Used Second Hand Smoke Exposure: No Substance Use Type: Marijuana service: No Current occupational status: employed Current occupational exposures/hazards: No Cognitive needs: No Hearing needs: No Vision needs: No Questionnaire Thrive Questionnaire Date Thrive assessed: 01/15/24 I am a: Patient What is your living situation today?: I have a steady place to live Within the past 12 months, did the food you bought not last and you didn't have the money to get more?: Never true Within the past 12 months, did you worry whether your food would run out before you got money to buy more?: Never true Do you have trouble paying for medicines?: No Do you have trouble getting transportation to medical appointments?: No Do you have trouble paying your heating and electricity bill?: No Do you have trouble taking care of your child, family member or friend?: No Do you have trouble with day-to-day activities such as bathing, preparing meals, shopping, managing finances, etc.?: No Are you currently unemployed and looking for a job?: No Are you interested in more education?: No Please select the resources that you would like help with: None Currently or been in a relationship where the following occur: No concerns reported THRIVE Score: 0 MALINDA-7 AMB Questionnaire MALINDA-7 Date MALINDA - 7 assessed: 06/06/23 Source: Developed by Drs. Fidencio Ghotra, Alyse Christopher, Jordan Farmer and colleagues, with an educational alecia from [employer]. Review of Systems Const Denies chills, Denies fatigue, Denies fever(s), Denies headache(s) and Denies weakness ENT Denies dizziness and Denies headache(s) Card Denies dyspnea Resp Denies cough, Denies dyspnea, Denies wheezing and Denies other (shortness of breath) Musc Denies numbness and Denies tingling Neuro Denies dizziness, Denies headache(s), Denies numbness, Denies tingling and Denies weakness Psych Denies anxiety and Denies depression Endo Denies fatigue Aller/Immun Denies wheezing Physical exam (Primary Care) Vital Signs: Last Vital Signs Temp 97.9 F 01/23/24 11:38 Pulse 81 01/23/24 11:38 Resp 16 01/23/24 11:38 BP 120/70 01/23/24 11:38 Pulse Ox 96 01/23/24 11:38 Oxygen Delivery Method Room Air 01/23/24 11:38 BMI result Body Mass Index 22.2 Tobacco/Smoking Status: Tobacco use Status Tobacco use date assessed 06/06/23 01/23/24 11:42 Patient Tobacco Use Status Current everyday Tobacco 01/23/24 11:42 e-Cigarette/Vaping Use Never Used 01/23/24 11:42 Thrive Assessment: Date of Thrive Assessment Date Thrive assessed 01/15/24 01/23/24 11:42 Currently or been in a relationship where the following occur: No concerns reported Const General: well developed; No acute distress Nutritional Appearance: well nourished Orientation/consciousness: patient oriented x3 HENMT Head: Yes normocephalic and Yes atraumatic Eyes General: appearance normal, both eyes and all related structures Pupils: Equal, round and reactive pupils present EOM: EOMs intact bilaterally Resp Effort & Inspection: normal respiratory effort Neuro General: patient oriented x3 and gait normal Cranial nerves: Yes Equal, round and reactive pupils present Psych Affect: normal affect Coding Level of Care Code Est Pt Level 3 (54178) Diagnoses Anxiety and depression F41.9; F32.A Substance use disorder F19.90 Assessment & Plan Assessment & Plan (1) Anxiety and depression: Code(s): F41.9 - Anxiety disorder, unspecified; F32.A - Depression, unspecified Category: Medical Plan: Patient?acknowledges?feeling?stable?and?he?feels?that?he?is?ready?to?return?to?[place]?on?January?. He?has?a?therapist?is?taking?fluoxetine?as?prescribed Continue?medication?and?follow-up?with?therapist?as?recommended (2) Substance use disorder: Code(s): F19.90 - Other psychoactive substance use, unspecified, uncomplicated Category: Medical Plan: Recommended?co mprehensive?care?clinic.??Patient?had?made?tentative?plans?to?go?as?a?walk- in?for?yesterday?but?was?unable?to?get?there. He?plans?to?go?on?Sunday Encouraged?this
[2024-01-23 11:38] VITALS: BP 120/70; PULSE 81; RESP 16; TEMP 36.6; O2SAT 96; BMI 22.2
== END 2024-01-23 11:57 | disposition home or self-care (01) ==
PROVIDERS: PCP Family Medicine; Visit Provider Family Medicine
DX: F41.9 Anxiety disorder, unspecified (principal); F32.A Depression, unspecified; F19.90 Other psychoactive substance use, unspecified, uncomplicated

== ENCOUNTER 2024-03-26 15:47 | Outpatient (AMB) | payer OTHER, SELFPAY ==
--- NOTE | 2024-03-26 16:03 | A.OFFPC_ITS ---
Vital Signs 03/26/24 16:07 Height 6 ft Weight 170 lb 4 oz BMI 23.1 BP 130/80 Blood Pressure Location Rt brachial Position Sitting Respiration 14 Pulse 60 Pulse Source Pulse Oximeter Temp 98.2 F Temp Source Oral Pulse Oximetry (%) 97 Oxygen Delivery Method Room Air Intake Visit Reasons: f/u anxiety/depression Intake Note: anxiety and depression follow up and rash on abd and shoulders with burning sensation pt has been trying otc creams to help subside itching and burning Allergies No Known Allergies Allergy (Verified 03/26/24 16:06) Medication List - Last Reconciled 03/26/24 by Luke Lew MD fluoxetine 30 mg PO DAILY methadone 110 mg PO DAILY trazodone 50 mg PO BEDTIME PRN 30 days Tobacco use date assessed: 06/06/23 Dental Screening Dental Screen Date: 06/06/23 HPI f/u anxiety/depression HPI Details 43 y/o male presents to f/u anxiety/depr ession. PHQ-9 1, MALINDA-7 1 today. Has complaints of an extensive rash. PFSH Surgical History H/O hand surgery History of hernia surgery Family History Maternal Grandfather Cancer Father No problems noted. Mother No problems noted. Maternal Grandfather Lung cancer Maternal Grandmother CVD (cardiovascular disease) Paternal Grandmother No problems noted. Paternal Grandfather No problems noted. Brother No problems noted. Sister No problems noted. Sister No problems noted. Sister No problems noted. Social History Household Members: Family Housing: House Alcohol intake: current Alcohol intake frequency: does not drink Patient Tobacco Use Status: Current everyday Tobacco user Cigarettes Per Day: 2 Years Smoked: One pack lasts just under a month. e-Cigarette/Vaping Use: Never Used Second Hand Smoke Exposure: No Substance Use Type: Marijuana service: No Current occupational status: employed Current occupational exposures/hazards: No Cognitive needs: No Hearing needs: No Vision needs: No Questionnaire PHQ-9 Over the last 2 weeks, how often have you been bothered by any of the following problems? 1. Little interest or pleasure in doing things: not at all 2. Feeling down, depressed, or hopeless: not at all 3. Trouble falling or staying asleep, or sleeping too much: not at all 4. Feeling tired or having little energy: not at all 5. Poor appetite or overeating: several days 6. Feeling bad about yourself - or that you are a failure or have let yourself or your family down: not at all 7. Trouble concentrating on things, such as reading the newspaper or watching television: not at all 8. Moving or speaking so slowly that other people could have noticed. Or the opposite - being so fidgety or restless that you have been moving around a lot more than usual: not at all 9. Thoughts that you would be better off or of hurting yourself in some way: not at all Total score: 1 Depression Screening Interpretation: Negative Depression Screening Done: Yes [id number] - PHQ-9 Billing: Yes Source: Developed by Drs. Fidencio Ghotra, Alyse Christopher, Jordan Farmer and colleagues, with an educational alecia from [employer]. Thrive Questionnaire Date Thrive assessed: 01/15/24 I am a: Patient What is your living situation today?: I have a steady place to live Within the past 12 months, did the food you bought not last and you didn't have the money to get more?: Never true Within the past 12 months, did you worry whether your food would run out before you got money to buy more?: Never true Do you have trouble paying for medicines?: No Do you have trouble getting transportation to medical appointments?: No Do you have trouble paying your heating and electricity bill?: No Do you have trouble taking care of your child, family member or friend?: No Do you have trouble with day-to-day activities such as bathing, preparing meals, shopping, managing finances, etc.?: No Are you currently unemployed and looking for a job?: No Are you interested in more education?: No Please select the resources that you would like help with: None Currently or been in a relationship where the following occur: No concerns reported THRIVE Score: 0 AUDIT C Alcohol Use Questionnaire (AUDIT-C) 1. How often do you have a drink containing alcohol?: Never Total Score: 0 MALINDA-7 AMB Questionnaire MALINDA-7 Date MALINDA - 7 assessed: 06/06/23 Feeling nervous, anxious, or on edge: 1 = Several days Not being able to stop or control worryin = Not at all Worrying too much about different things: 0 = Not at all Trouble relaxin = Not at all Being so restless that it is hard to sit still: 0 = Not at all Becoming easily annoyed or irritable: 0 = Not at all Feeling afraid as if something awful might happen: 0 = Not at all Total MALINDA-7 score (0-4 normal; 5-9 mild; 10-14 moderate; 15-21 severe): 1 Source: Developed by Drs. Fidencio Ghotra, Alyse Christopher, Jordan Farmer and colleagues, with an educational alecia from [employer]. Physical exam (Primary Care) Vital Signs: Last Vital Signs Temp 98.2 F 03/26/24 16:07 Pulse 60 03/26/24 16:07 Resp 14 03/26/24 16:07 BP 130/80 03/26/24 16:07 Pulse Ox 97 03/26/24 16:07 Oxygen Delivery Method Room Air 03/26/24 16:07 BMI result Body Mass Index 23.1 Tobacco/Smoking Status: Tobacco use Status Tobacco use date assessed 06/06/23 03/26/24 16:11 Patient Tobacco Use Status Current everyday Tobacco 03/26/24 16:11 e-Cigarette/Vaping Use Never Used 03/26/24 16:11 PHQ-9: PHQ-9 Score PHQ-9: Total score 1 03/26/24 16:30 Depression Screening Interpretation: Negative Thrive Assessment: Date of Thrive Assessment Date Thrive assessed 01/15/24 03/26/24 16:11 Currently or been in a relationship where the following occur: No concerns reported Coding Level of Care Code Est Pt Level 3 (62337) Diagnoses Anxiety and depression F41.9; F32.A Urticaria L50.9 Additional Codes PHQ-9 - 65279 - PHQ-9 Billing: Yes ([id number]) Assessment & Plan Assessment & Plan (1) Anxiety and depression: Code(s): F41.9 - Anxiety disorder, unspecified; F32.A - Depression, unspecified Category: Medical Plan: Anxiety?depression?appear?well?controlled. He?has?a?therapist?and?psych?med?provider. History?of?substance?abuse?but?says?he?has?been?clean?for?90?days?and?I?congratu lated?him?on?this. Continue?current?medication?regimen?and?follow-up? with?psych?behavioral?health?team?as?recommended (2) Urticaria: Code(s): L50.9 - Urticaria, unspecified Category: Medical Plan: Urticarial?rash?on?torso,?arms?and?slightly?on?thighs Unclear?cause.??No?new?medications?and?no?new?foods?or?changes?of? detergent?or?other?exposures. Of?note,?patient?did?have?similar?rash?quite?some?time?ago?which?had?resolved. Will?give?him?a?short?course?of?prednisone?and?I?encouraged?him?to?use?Benadryl? at?night. Cool?showers Watch?for?and?avoid?any?trigger?exposures Call?or?return?to?office?if?not?improving?in?7- 10?days?or?if?returns?after?treatment. Would?refer?to?immunology?or?dermatology?at?that?point. Orders: Orders Comprehensive [facility]. Panel Fast Today Z00.00 - Encounter for general adult me dical examination without abnormal findings Complete Blood Count Auto Diff Today Z00.00 - Encounter for general adult medical examination without abnormal findings Lipid Panel Today Z00.00 - Encounter for general adult medical examination without abnormal findings Prostate Specific Antigen Scr Today Z12.5 - Encounter for screening for malignant neoplasm of prostate UA and rflx microscopic Today Z00.00 - Encounter for general adult medical examination without abnormal findings TSH reflex Free T4 Today Z00.00 - Encounter for general adult medical examination without abnormal findings Medications: New prednisone 40 mg (2 x 20 mg) PO DAILY 5 days 10 tabs 0RF
[2024-03-26 16:07] VITALS: BP 130/80; PULSE 60; RESP 14; TEMP 36.8; O2SAT 97; BMI 23.1
== END 2024-03-26 16:39 | disposition home or self-care (01) ==
PROVIDERS: PCP Family Medicine; Visit Provider Family Medicine
DX: F41.9 Anxiety disorder, unspecified (principal); F32.A Depression, unspecified; L50.9 Urticaria, unspecified

== ENCOUNTER → 2024-03-26 15:47 | Outpatient (BNVA) | payer OTHER, SELFPAY | PROVIDERS: PCP Family Medicine; Visit Provider Family Medicine | DX: F41.9 Anxiety disorder, unspecified (principal); F32.A Depression, unspecified; L50.9 Urticaria, unspecified | CPT/HCPCS: 96127 ==

== ENCOUNTER 2024-04-15 10:24 | Outpatient (AMB) | payer OTHER, SELFPAY ==
--- NOTE | 2024-04-15 10:33 | MHC.PC.OV ---
Vital Signs 04/15/24 10:35 Height 6 ft Weight 171 lb 4 oz BMI 23.2 BP 120/62 Blood Pressure Location Lt brachial Position Sitting Respiration 12 Pulse 64 Pulse Source Pulse Oximeter Temp 97.9 F Temp Source Oral Pulse Oximetry (%) 98 Oxygen Delivery Method Room Air Intake Visit Reasons: RASH ON TORSO/ARMS Intake Note: rash on torso and arms pt states his abd is clearing up. he is not sure if its a reaction to his soap or laundry detergent. Allergies No Known Allergies Allergy (Verified 04/15/24 10:34) Tobacco use date assessed: 06/06/23 Dental Screening Dental Screen Date: 06/06/23 HPI RASH ON TORSO/ARMS HPI Details 43 y/o male presents today with complaints of a rash on torso/arms. He notes rash has been improving but still reports pruritus. PFSH Surgical History H/O hand surgery History of hernia surgery Family History Maternal Grandfather Cancer Father No problems noted. Mother No problems noted. Maternal Grandfather Lung cancer Maternal Grandmother CVD (cardiovascular disease) Paternal Grandmother No problems noted. Paternal Grandfather No problems noted. Brother No problems noted. Sister No problems noted. Sister No problems noted. Sister No problems noted. Social History Household Members: Family Housing: House Alcohol intake: current Alcohol intake frequency: does not drink Patient Tobacco Use Status: Current everyday Tobacco user Cigarettes Per Day: 2 Years Smoked: One pack lasts just under a month. e-Cigarette/Vaping Use: Never Used Second Hand Smoke Exposure: No Substance Use Type: Marijuana service: No Current occupational status: employed Current occupational exposures/hazards: No Cognitive needs: No Hearing needs: No Vision needs: No Questionnaire Thrive Questionnaire Date Thrive assessed: 03/26/24 I am a: Patient What is your living situation today?: I have a steady place to live Within the past 12 months, did the food you bought not last and you didn't have the money to get more?: Never true Within the past 12 months, did you worry whether your food would run out before you got money to buy more?: Never true Do you have trouble paying for medicines?: No Do you have trouble getting transportation to medical appointments?: No Do you have trouble paying your heating and electricity bill?: No Do you have trouble taking care of your child, family member or friend?: No Do you have trouble with day-to-day activities such as bathing, preparing meals, shopping, managing finances, etc.?: No Are you currently unemployed and looking for a job?: No Are you interested in more education?: No Please select the resources that you would like help with: None Currently or been in a relationship where the following occur: No concerns reported THRIVE Score: 0 MALINDA-7 AMB Questionnaire MALINDA-7 Date MALINDA - 7 assessed: 06/06/23 Source: Developed by Drs. Fidencio Ghotra, Alyse Christopher, Jordan Farmer and colleagues, with an educational alecia from [employer]. Review of Systems Const Denies chills, Denies fatigue, Denies fever(s), Denies headache(s) and Denies weakness ENT Denies dizziness and Denies headache(s) Card Denies dyspnea Resp Denies cough, Denies dyspnea, Denies wheezing and Denies other (shortness of breath) Musc Denies numbness and Denies tingling Skin/Breast Reports rash Neuro Denies dizziness, Denies headache(s), Denies numbness, Denies tingling and Denies weakness Psych Denies anxiety and Denies depression Endo Denies fatigue Aller/Immun Denies wheezing Physical exam (Primary Care) Vital Signs: Last Vital Signs Temp 97.9 F 04/15/24 10:35 Pulse 64 04/15/24 10:35 Resp 12 04/15/24 10:35 BP 120/62 04/15/24 10:35 Pulse Ox 98 04/15/24 10:35 Oxygen Delivery Method Room Air 04/15/24 10:35 BMI result Body Mass Index 23.2 Tobacco/Smoking Status: Tobacco use Status Tobacco use date assessed 06/06/23 04/15/24 10:38 Patient Tobacco Use Status Current everyday Tobacco 04/15/24 10:38 e-Cigarette/Vaping Use Never Used 04/15/24 10:38 Thrive Assessment: Date of Thrive Assessment Date Thrive assessed 03/26/24 04/15/24 10:38 Currently or been in a relationship where the following occur: No concerns reported Const General: well developed; No acute distress Nutritional Appearance: well nourished Orientation/consciousness: patient oriented x3 [facility] Head: Yes normocephalic and Yes atraumatic Eyes General: appearance normal, both eyes and all related structures Pupils: Equal, round and reactive pupils present EOM: EOMs intact bilaterally Resp Effort & Inspection: normal respiratory effort Neuro General: patient oriented x3 and gait normal Cranial nerves: Yes Equal, round and reactive pupils present Psych Affect: normal affect Coding Level of Care Code Est Pt Level 3 (85834) Diagnoses Rash R21 Assessment & Plan Assessment & Plan (1) Rash: Code(s): R21 - Rash and other nonspecific skin eruption Category: Medical Plan: Ongoing?urticaria Patient?says?that?prednisone?helped?while?he?was?using?it. He?is?still?taking?cetirizine?during?the?day?and?Benadryl?at?night. Continue?antihistamine. Will?give?him?another?script?of?prednisone?as?a?10?day?taper Referred?to?immunology?for?testing?and?treatment Also?advised?loose?fitting?clothing,?cooler?showers?and?advised?he?watch?clothing?in?rinse?twice. Watch?triggers Moisturizing?cream?with?no?dyes?perfumes Orders: Referrals Allergy & Immunology Referral L50.9 - Urticaria, unspecified Medications: New prednisone 4 tabs daily for 4 days, 3 tabs daily for 2 days, 2 tabs daily for 2 days, 1 tab daily for 2 days PO daily; 10 days 28 tabs 0RF
[2024-04-15 10:35] VITALS: BP 120/62; PULSE 64; RESP 12; TEMP 36.6; O2SAT 98; BMI 23.2
== END 2024-04-15 10:55 | disposition home or self-care (01) ==
PROVIDERS: PCP Family Medicine; Visit Provider Family Medicine
DX: R21 Rash and other nonspecific skin eruption (principal)

== ENCOUNTER 2024-07-07 10:31 | Outpatient (REF) | payer OTHER, SELFPAY ==
[2024-07-08 10:04] LABS: Immunoglobulin E 9 kU/L (<OR=114)
== END 2024-07-07 10:32 | disposition home or self-care (01) ==
LOC: HO.10HDL 10:31
PROVIDERS: Visit Provider Otolaryngology
DX: J30.89 Other allergic rhinitis (principal); L50.0 Allergic urticaria
CPT/HCPCS: 36415; 82785; 86003

== ENCOUNTER 2024-07-26 10:06 | Outpatient (REF) | payer OTHER, SELFPAY ==
[2024-07-26 10:15] LABS: MANUAL DIFF FLAG NO
[2024-07-26 10:52] LABS: Basophils Absolute Auto 0.1 X10*3/uL (0.0-0.2); Basophils Percent Auto 0.9 % (0-2); Eosinophils Absolute Auto 0.3 X10*3/uL (0.0-0.4); Eosinophils Percent Auto 3.9 % (0-4); Hematocrit 39.2 % (42.0-52.0); Hemoglobin 13.7 g/dl (14.0-18.0); Imm Gran Abs Auto 0.02 X10*3/uL (0.00-0.03); Imm Gran Pct Auto 0.3 % (0.0-0.4); Lymphocytes Absolute Auto 2.7 X10*3/uL (1.2-4.9); Mean Corpuscular HGB Conc 34.9 g/dl (31.0-36.0); Mean Corpuscular Hemoglobin 30.2 pg (27.0-33.0); Mean Corpuscular Volume 86.3 fL (80.0-98.0); Mean Platelet Volume 9.4 fL (9.4-12.4); Monocytes Absolute Auto 0.6 X10*3/uL (0.1-1.2); Monocytes Percent Auto 7.6 % (2-11); Neutrophils Absolute Auto 4.2 x10*3/uL (2.0-8.3); Neutrophils Percent Auto 53.3 % (45-73); Platelet Count 285 X10*3/uL (160-400); Red Blood Count 4.54 X10*6/uL (4.60-5.80); Red Cell Distribution Width 12.7 % (11.0-16.0); White Blood Count 7.9 X10*3/uL (4.8-10.8)
[2024-07-26 11:30] LABS: Appearance Urine Clear; Color Urine Yellow; Glucose Urine UA Negative (Negative); Leukocyte Esterase Urine Trace (Negative); Nitrite Urine Negative (Negative); PH 6.5 (5.0-9.0); UMIC TRIGGER UA YES; Urine Blood Negative (Negative); Urine Ketones Trace mg/dL (Negative); Urine Protein Trace mg/dL (Neg-Trace)
[2024-07-26 11:35] LABS: Alanine Aminotransferase 16 U/L (0-40); Albumin Level 4.4 g/dL (3.5-5.0); Alkaline Phosphatase 85 U/L (39-117); Anion Gap 12 (12-20); Aspartate Amino Transferase 31 U/L (5-37); Bilirubin Total 0.4 mg/dL (0.0-1.0); Blood Urea Nitrogen 20 mg/dL (9-16); Calcium 9.6 mg/dL (8.4-10.2); Carbon Dioxide 26 mmol/L (22-29); Chloride 107 mmol/L (96-108); Cholesterol 143 mg/dL (<200); Estimated Glomerular Filt Rate > 60; Glucose Fasting 91 mg/dL (60-99); HDL Cholesterol 38 mg/dL (>40); LDL Cholesterol Calculated 88 mg/dL (<100); Potassium 4.3 mmol/L (3.3-5.1); Sodium 141 mmol/L (135-145); Triglycerides 86 mg/dL (<150)
[2024-07-26 11:40] LABS: Bacteria Urine None Seen (None Seen); Hyaline Casts Urine 0-2 /LPF (0-2); RBC Urine 0-2 /HPF (0-2); Squamous Epithelial Cell Urine 0-2 /HPF (0-2); WBC Urine 0-5 /HPF (0-5)
[2024-07-26 11:47] LABS: Prostate Specific Antigen Scr 0.71 ng/mL (<0.05-4.0)
[2024-07-26 11:52] LABS: TSH reflex Free T4 0.95 uIU/mL (0.32-4.0)
== END 2024-07-26 10:07 | disposition home or self-care (01) ==
LOC: HO.LAB 10:06
PROVIDERS: PCP Family Medicine; Visit Provider Family Medicine
DX: Z00.00 Encounter for general adult medical examination without abnormal findings (principal); Z12.5 Encounter for screening for malignant neoplasm of prostate; Z13.6 Encounter for screening for cardiovascular disorders
CPT/HCPCS: 36415; 80053; 80061; 81001; 81003; 84153; 84443; 85025

== ENCOUNTER → 2024-07-28 15:51 | Outpatient (AMB) | payer OTHER, SELFPAY ==
--- NOTE | 2024-07-28 16:25 | A.OFFPC_ITS ---
Vital Signs 07/28/24 16:27 Height 6 ft Weight 170 lb 4 oz BMI 23.1 BP 124/64 Blood Pressure Location Lt brachial Position Sitting Respiration 16 Pulse 68 Pulse Source Pulse Oximeter Temp 98.3 F Temp Source Oral Pulse Oximetry (%) 97 Oxygen Delivery Method Room Air Intake Visit Reasons: Annual PE Intake Note: patient is scheduled annual visit. Patient states he has pain in left ear and has freckles on back that freaking him out. Allergies No Known Allergies Allergy (Verified 07/28/24 16:26) Medication List - Last Reconciled 07/28/24 by Luke Lew MD fluoxetine 30 mg PO DAILY methadone 110 mg PO DAILY trazodone 50 mg PO BEDTIME PRN 30 days Tobacco use date assessed: 07/28/24 Dental Screening Dental Screen Date: 06/06/23 Did you have a dental visit in the last 12 months?: Yes Did you have a dental problem in the last 6 months where you did not have access to dental care?: No Was dental information given to patient?: No HPI Annual PE HPI Details 44 y/o male presents for a CPE with f/u labs and health maintenance. Labs drawn 07/26/24. Reviewed labs with pt. Mild anemia. Triglycerides 86. TC 143. LDL 88. HDL low at 38. PSA 0.71. Has complaints of L ear pain. Has complaints of freckles on his back. [facility] Surgical History H/O hand surgery History of hernia surgery Family History Maternal Grandfather Cancer Father No problems noted. Mother No problems noted. Maternal Grandfather Lung cancer Maternal Grandmother CVD (cardiovascular disease) Paternal Grandmother No problems noted. Paternal Grandfather No problems noted. Brother No problems noted. Sister No problems noted. Sister No problems noted. Sister No problems noted. Social History Household Members: Family Housing: House Alcohol intake: current Alcohol intake frequency: does not drink Patient Tobacco Use Status: Current everyday Tobacco user Cigarettes Per Day: 2 Years Smoked: One pack lasts just under a month. Packs per year/per ci.00 e-Cigarette/Vaping Use: Never Used Second Hand Smoke Exposure: No Substance Use Type: Marijuana service: No Current occupational status: employed Current occupational exposures/hazards: No Cognitive needs: No Hearing needs: No Vision needs: No Questionnaire Thrive Questionnaire Date Thrive assessed: 07/28/24 I am a: Patient What is your living situation today?: I have a steady place to live Within the past 12 months, did the food you bought not last and you didn't have the money to get more?: Never true Within the past 12 months, did you worry whether your food would run out before you got money to buy more?: Never true Do you have trouble paying for medicines?: No Do you have trouble getting transportation to medical appointments?: No Do you have trouble paying your heating and electricity bill?: No Do you have trouble taking care of your child, family member or friend?: No Do you have trouble with day-to-day activities such as bathing, preparing meals, shopping, managing finances, etc.?: No Are you currently unemployed and looking for a job?: No Are you interested in more education?: No Please select the resources that you would like help with: None Currently or been in a relationship where the following occur: No concerns reported THRIVE Score: 0 MALINDA-7 AMB Questionnaire MALINDA-7 Date MALINDA - 7 assessed: 06/06/23 Source: Developed by Drs. Fidencio Ghotra, Alyse Christopher, Jordan Farmer and colleagues, with an educational alecia from [employer]. Review of Systems Const Denies chills, Denies fatigue, Denies fever(s), Denies headache(s) and Denies weakness Eyes Denies change in vision ENT Denies dizziness, Denies headache(s), Denies hearing loss, Denies nasal congest ion, Denies sinus pain, Denies sinus pressure and Denies sore throat Card Denies chest pain, Denies lightheadedness, Denies dyspnea and Denies other (palpitations) Resp Denies cough, Denies dyspnea and Denies wheezing GI Denies abdominal pain, Denies melena, Denies hematochezia, Denies change in bowel habits, Denies dyspepsia and Denies nausea Denies hematuria and Denies dysuria Musc Denies abnormal gait, Denies myalgias, Denies arthralgias, Denies numbness and Denies tingling Skin/Breast Denies rash, Denies unusual bruising and Denies wounds Neuro Denies abnormal gait, Denies dizziness, Denies headache(s), Denies memory loss, Denies numbness, Denies Sensory deficit (Neuro), Denies tingling and Denies weakness Psych Denies anxiety, Denies depression and Denies memory loss Endo Denies cold intolerance, Denies fatigue, Denies heat intolerance, Denies polydipsia and Denies polyuria Fan/Lymph Denies easy bleeding and Denies easy bruising Aller/Immun Denies wheezing Physical exam (Primary Care) Vital Signs: Last Vital Signs Temp 98.3 F 07/28/24 16:27 Pulse 68 07/28/24 16:27 Resp 16 07/28/24 16:27 BP 124/64 07/28/24 16:27 Pulse Ox 97 07/28/24 16:27 Oxygen Delivery Method Room Air 07/28/24 16:27 BMI result Body Mass Index 23.1 Tobacco/Smoking Status: Tobacco use Status Tobacco use date assessed 07/28/24 07/28/24 16:30 Patient Tobacco Use Status Current everyday Tobacco 07/28/24 16:30 e-Cigarette/Vaping Use Never Used 07/28/24 16:30 Thrive Assessment: Date of Thrive Assessment Date Thrive assessed 07/28/24 07/28/24 16:30 Currently or been in a relationship where the following occur: No concerns reported Const General: no acute distress, well developed, alert and awake Nutritional Appearance: well nourished Orientation/consciousness: patient oriented x3 [facility] Head: Yes normocephalic and Yes atraumatic Ears: hearing grossly normal bilaterally and TM's normal bilaterally General nose exam: Normal external nose present and Normal nares present Mouth: Normal oral and palatal mucosa present and moist mucous membranes Teeth and gingiva: dentition normal Throat: Yes posterior oropharynx normal Eyes General: appearance normal, both eyes and all related structures Pupils: Equal, round and reactive pupils present and Pupil accommodation reflex normal EOM: EOMs intact bilaterally Neck Neck: Yes normal visual inspection, Yes no lymphadenopathy and Yes trachea midline Thyroid: Thyroid normal Carotids: no bruits Lymphatic: no lymphadenopathy noted Chest Chest palpation & inspection: normal inspection of the chest Resp Effort & Inspection: normal respiratory effort Auscultation: clear to auscultation bilaterally Cardio Rate: regular rate Rhythm: regular rhythm Heart sounds: S1 normal heart sound present, S2 normal heart sound present, no gallops, no murmurs and no rubs Bruits: no abdominal aortic bruits and no carotid bruits GI Palpation (GI): No Abdominal aortic bruit present, Soft to palpation, nontender, No hepatosplenomegaly present and No Rebound tenderness present Auscultation: normal bowel sounds General: Yes no CVA tenderness Back/Spine/Pelvis Back: no CVA tenderness Cervical Spine: cervical ROM normal and No Cervical spine tenderness Thoracic/Lumbar Spine: thoraco-lumbar ROM normal, No pain with thoraco-lumbar ROM, No thoracic spinal tenderness and No lumbar spinal tenderness Skin Lesions: no lesions Rashes: no rashes Trauma: no lacerations or abrasions Wounds: no wounds Nails: normal Neuro General: patient oriented x3 Cranial nerves: Yes Equal, round and reactive pupils present Cognition (Neuro): normal cognition Gait exam (Neuro): Normal gait present Motor exam (neuro): 5/5 motor strength present throughout Sensory Exam: No Sensory deficit (Neuro) Deep tendon reflexes (DTR's): Right patellar reflex intensity grade: 2+ and Left patellar reflex intensity grade: 2+ Extrem General: Yes normal to inspection and No edema Psych Appearance: grossly normal Affect: normal affect Attitude: cooperative Thought process: Normal thought process present Coding Level of Care Code Est Pt Level 3 (05393) Est Pt Prev Care 40-64y(93760) Diagnoses Adult general medical exam Z00.00 Mild anemia D64.9 Neoplasm of uncertain behavior of skin D48.5 Sun-damaged skin L57.8 Left ear pain H92.02 Anxiety and depression F41.9; F32.A Screening for prostate cancer Z12.5 Assessment & Plan Assessment & Plan (1) Adult general medical exam: Code(s): Z00.00 - Encounter for general adult medical examination without abnormal findings Category: Medical Plan: 44-year-old?male?presents?for?complete?physical?exam Encouraged?healthy?diet?with?active?lifestyle?and?plenty?of?exercise (2) Mild anemia: Code(s): D64.9 - Anemia, unspecified Category: Medical Plan: Mild?stable?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 Will?continue?to?monitor?periodically (3) Neoplasm of uncertain behavior of skin: Code(s): D48.5 - Neoplasm of uncertain behavior of skin Category: Medical Plan: Numerous?moles?and?sun?damaged?skin?on?his?back Several lesions?are?ap proximately?1?cm?in?largest?dimension?with?some?color?variation?and irregular?borders. Refer?to?dermatology (4) Sun-damaged skin: Code(s): L57.8 - Other skin changes due to chronic exposure to nonionizing radiation Category: Medical Plan: As?above (5) Left ear pain: Code(s): H92.02 - Otalgia, left ear Category: Medical Plan: Left?ear?canal?is?tender?and?he?has?a?small?lesion?on?the?anterior?aspect?of?the ?canal Possibly?infected Will?give?him?a?script?for?ofloxacin?eardrops He?will?follow-up?in?a month If?worsened?or?no?improvement,?will?refer?to?ENT (6) Anxiety and depression: Code(s): F41.9 - Anxiety disorder, unspecified; F32.A - Depression, unspecified Category: Medical Plan: Patient?is?no?longer?taking?fluoxetine He?is?followed?by?a?therapist. ?He?notes?that?is?microdosing?mushrooms Denies?any?current?anxiety?or?depression Recommend?he?follow-up?with?therapist Patient?otherwise?denies?drug?use. (7) Screening for prostate cancer: Code(s): Z12.5 - Encounter for screening for malignant neoplasm of prostate Category: Medical Plan: PSA?was?within?normal?range Will?continue?annual?screening Orders: Referrals Dermatology Referral D48.5 - Neoplasm of uncertain behavior of skin Medications: New ofloxacin 0.3% 5 drps otic (ears) DAILY 7 days 5 mL 0RF
[2024-07-28 16:27] VITALS: BP 124/64; PULSE 68; RESP 16; TEMP 36.8; O2SAT 97; BMI 23.1
== END ==
LOC: HO.HMCFM 15:52
PROVIDERS: PCP Family Medicine; Visit Provider Family Medicine
DX: Z00.00 Encounter for general adult medical examination without abnormal findings (principal); D64.9 Anemia, unspecified; D48.5 Neoplasm of uncertain behavior of skin; L57.8 Other skin changes due to chronic exposure to nonionizing radiation; H92.02 Otalgia, left ear; F41.9 Anxiety disorder, unspecified; F32.A Depression, unspecified; Z12.5 Encounter for screening for malignant neoplasm of prostate

== ENCOUNTER → 2024-07-28 15:51 | Outpatient (BNVA) | payer OTHER, SELFPAY | PROVIDERS: PCP Family Medicine; Visit Provider Family Medicine ==

== ENCOUNTER 2024-09-10 14:42 | Outpatient (AMB) | payer OTHER, SELFPAY ==
--- NOTE | 2024-09-10 14:51 | MHC.PC.OV ---
Vital Signs 09/10/24 14:55 Height 6 ft Weight 166 lb 2 oz BMI 22.5 BP 120/70 Blood Pressure Location Lt brachial Position Sitting Respiration 16 Pulse 85 Pulse Source Pulse Oximeter Temp 98 F Temp Source Oral Pulse Oximetry (%) 98 Oxygen Delivery Method Room Air Intake Visit Reasons: f/u ear pain, anxiety/depression, mild anemia Intake Note: patient is scheduled for mental health follow up Radiation Therapy Technologist Required: No Allergies No Known Allergies Allergy (Verified 09/10/24 14:52) Tobacco use date assessed: 07/28/24 Dental Screening Dental Screen Date: 06/06/23 HPI f/u ear pain, anxiety/depression, mild anemia HPI Details 44 y/o male presents to f/u ear pain, anxiety/depression, mild anemia. Pt had a small lesion on anterior aspect of canal. Had given him script for ofloxacin eardrops. PHQ-9 1, MALINDA-7 0 today. He is on trazodone. He sees his therapist once a week. Pt notes ear pain improved. No further lesion in L ear canal. [facility] Surgical History H/O hand surgery History of hernia surgery Family History Maternal Grandfather Cancer Father No problems noted. Mother No problems noted. Maternal Grandfather Lung cancer Maternal Grandmother CVD (cardiovascular disease) Paternal Grandmother No problems noted. Paternal Grandfather No problems noted. Brother No problems noted. Sister No problems noted. Sister No problems noted. Sister No problems noted. Social History Household Members: Family Housing: House Alcohol intake: current Alcohol intake frequency: does not drink Patient Tobacco Use Status: Current everyday Tobacco user Cigarettes Per Day: 2 Years Smoked: One pack lasts just under a month. e-Cigarette/Vaping Use: Never Used Second Hand Smoke Exposure: No Substance Use Type: Marijuana service: No Current occupational status: employed Current occupational exposures/hazards: No Cognitive needs: No Hearing needs: No Vision needs: No Questionnaire PHQ-9 Over the last 2 weeks, how often have you been bothered by any of the following problems? 1. Little interest or pleasure in doing things: not at all 2. Feeling down, depressed, or hopeless: not at all 3. Trouble falling or staying asleep, or sleeping too much: not at all 4. Feeling tired or having little energy: not at all 5. Poor appetite or overeating: several days 6. Feeling bad about yourself - or that you are a failure or have let yourself or your family down: not at all 7. Trouble concentrating on things, such as reading the newspaper or watching television: not at all 8. Moving or speaking so slowly that other people could have noticed. Or the opposite - being so fidgety or restless that you have been moving around a lot more than usual: not at all 9. Thoughts that you would be better off or of hurting yourself in some way: not at all Total score: 1 Depression Screening Interpretation: Negative Depression Screening Done: Yes [id number] - PHQ-9 Billing: Yes Source: Developed by Drs. Fidencio Ghotra, Alyse Christopher, Jordan Farmer and colleagues, with an educational alecia from [employer]. Thrive Questionnaire Date Thrive assessed: 03/26/24 I am a: Patient What is your living situation today?: I have a steady place to live Within the past 12 months, did the food you bought not last and you didn't have the money to get more?: Never true Within the past 12 months, did you worry whether your food would run out before you got money to buy more?: Never true Do you have trouble paying for medicines?: No Do you have trouble getting transportation to medical appointments?: No Do you have trouble paying your heating and electricity bill?: No Do you have trouble taking care of your child, family member or friend?: No Do you have trouble with day-to-day activities such as bathing, preparing meals, shopping, managing finances, etc.?: No Are you currently unemployed and looking for a job?: No Are you interested in more education?: No Please select the resources that you would like help with: None Currently or been in a relationship where the following occur: No concerns reported THRIVE Score: 0 MALINDA-7 AMB Questionnaire MALINDA-7 Date MALINDA - 7 assessed: 09/10/24 Feeling nervous, anxious, or on edge: 0 = Not at all Not being able to stop or control worryin = Not at all Worrying too much about different things: 0 = Not at all Trouble relaxin = Not at all Being so restless that it is hard to sit still: 0 = Not at all Becoming easily annoyed or irritable: 0 = Not at all Feeling afraid as if something awful might happen: 0 = Not at all Total MALINDA-7 score (0-4 normal; 5-9 mild; 10-14 moderate; 15-21 severe): 0 Source: Developed by Drs. Fidencio Ghotra, Alyse Christopher, Jordan Farmer and colleagues, with an educational alecia from [employer]. MALINDA-7 Assessment Billing MALINDA-7 Assessment Tool: MALINDA-7 Assessment 87491 Review of Systems Const Denies chills, Denies fatigue, Denies fever(s), Denies headache(s) and Denies weakness ENT Denies dizziness and Denies headache(s) Card Denies dyspnea Resp Denies cough, Denies dyspnea, Denies wheezing and Denies other (shortness of breath) Musc Denies numbness and Denies tingling Neuro Denies dizziness, Denies headache(s), Denies numbness, Denies tingling and Denies weakness Psych Denies anxiety and Denies depression Endo Denies fatigue Aller/Immun Denies wheezing Physical exam (Primary Care) Vital Signs: Last Vital Signs Temp 98 F 09/10/24 14:55 Pulse 85 09/10/24 14:55 Resp 16 09/10/24 14:55 BP 120/70 09/10/24 14:55 Pulse Ox 98 09/10/24 14:55 Oxygen Delivery Method Room Air 09/10/24 14:55 BMI result Body Mass Index 22.5 Tobacco/Smoking Status: Tobacco use Status Tobacco use date assessed 07/28/24 09/10/24 15:01 Patient Tobacco Use Status Current everyday Tobacco 09/10/24 15:01 e-Cigarette/Vaping Use Never Used 09/10/24 15:01 PHQ-9: PHQ-9 Score PHQ-9: Total score 1 09/10/24 15:01 Depression Screening Interpretation: Negative Thrive Assessment: Date of Thrive Assessment Date Thrive assessed 03/26/24 09/10/24 15:01 Currently or been in a relationship where the following occur: No concerns reported Const General: well developed; No acute distress Nutritional Appearance: well nourished Orientation/consciousness: patient oriented x3 [facility] Head: Yes normocephalic and Yes atraumatic Eyes General: appearance normal, both eyes and all related structures Pupils: Equal, round and reactive pupils present EOM: EOMs intact bilaterally Resp Effort & Inspection: normal respiratory effort Neuro General: patient oriented x3 and gait normal Cranial nerves: Yes Equal, round and reactive pupils present Psych Affect: normal affect Coding Level of Care Code Est Pt Level 3 (73791) Diagnoses Left ear pain H92.02 Anxiety and depression F41.9; F32.A Additional Codes MALINDA-7 Assessment Billing - MALINDA-7 Assessment Tool: MALINDA-7 Assessment 14816 ([id number]) PHQ-9 - 09753 - PHQ-9 Billing: Yes ([id number]) Assessment & Plan Assessment & Plan (1) Left ear pain: Code(s): H92.02 - Otalgia, left ear Category: Medical Plan: Left ear pain at prior visit and patient was given ofloxacin Been resolved and he has no further lesion in left ear canal Resolved (2) Anxiety and depression: Code(s): F41.9 - Anxiety disorder, unspecified; F32.A - Depression, unspecified Category: Medical Plan: History of substance abuse, anxiety and depression. No longer on fluoxetine At last visit I have recorded that he said he did not have a therapist but he clarified today-he does have a therapist but does not have a psychologist or prescriber. Sees therapist once a week PHQ-9 and malinda 7 are quite low and patient says he feels quite have been grounded He remains abstinent of substances except is micro dosing mushrooms for control of his mood which he says is working well. He is getting regular exercise Congratulated patient on remaining free of substances Encouraged ongoing exercise and social interaction Encouraged ongoing visits with therapist Orders: Orders Complete Blood Count Auto Diff Today Z00.00 - Encounter for general adult medical examination without abnormal findings IRON PROFILE Today D64.9 - Anemia, unspecified TSH reflex Free T4 Today Z00.00 - Encounter for general adult medical examination without abnormal findings UA CC w/rflx Micro + Cult Today Z00.00 - Encounter for general adult medical examination without abnormal findings Comprehensive [place]. Panel Fast Today Z00.00 - Encounter for general adult medical examination without abnormal findings Microalbumin, Random (w Creat) Today I10 - Essential (primary) hypertension Vitamin B12 and Folate Today D64.9 - Anemia, unspecified, E53.8 - Deficiency of other specified B group vitamins
[2024-09-10 14:55] VITALS: BP 120/70; PULSE 85; RESP 16; TEMP 36.6; O2SAT 98; BMI 22.5
== END 2024-09-10 15:13 | disposition home or self-care (01) ==
LOC: HO.HMCFM 14:43
PROVIDERS: PCP Family Medicine; Visit Provider Family Medicine
DX: H92.02 Otalgia, left ear (principal); F41.9 Anxiety disorder, unspecified; F32.A Depression, unspecified

== ENCOUNTER → 2024-09-10 14:42 | Outpatient (BNVA) | payer OTHER, SELFPAY | PROVIDERS: PCP Family Medicine; Visit Provider Family Medicine | DX: H92.02 Otalgia, left ear (principal); F41.9 Anxiety disorder, unspecified; F32.A Depression, unspecified; D64.9 Anemia, unspecified; I10 Essential (primary) hypertension; E53.8 Deficiency of other specified B group vitamins | CPT/HCPCS: 96127 ==